=== PATIENT | male | born 1990 | race Asian ===

== ENCOUNTER 2019-02-05 23:43 | Inpatient (IN) | payer SELFPAY ==
[~2019-02-05] VITALS: Ht 170.2 cm; Wt 85.7 kg
[2019-02-05 23:54] VITALS: Ht 170.2 cm; Wt 85.7 kg
--- NOTE | 2019-02-06 00:15 | NUR ---
PATIENT SEEN WITH COMPLAINT OF SORENESS OF BOTH THIGH. DENIES INJURY , BUT REPORT EXERCISING. PATIENT IS WAIITNG FOR MD EVALUATION.
[2019-02-06 00:45] LABS: CALCIUM 8.7 mg/dL (8.5-10.1); CARBON DIOXIDE 30.2 mmol/L (21-32); CHLORIDE SERUM 105 mmol/L (98-107); GFR1 > 60 mL/min; GLUCOSE SERUM 96 mg/dL (74-106); POTASSIUM SERUM 4.3 mmol/L (3.5-5.1); SODIUM SERUM 143 mmol/L (136-145)
--- NOTE | 2019-02-06 00:48 | NUR ---
URINE SENT TO LAB; TEA-COLORED URINE NOTED.
[2019-02-06 00:57] LABS: UA SPECIFIC GRAVITY 1.025 (1.005-1.035); microscopic required? YES; urine erythrocyte 3+ (NEGATIVE)
--- NOTE | 2019-02-06 01:31 | NUR ---
SALINE LOCK INSERTED AND FLUID BOLUS WAS GIVEN.
--- NOTE | 2019-02-06 03:19 | NUR ---
pORTABLE CHEST XRAY WAS DONE. REPORT WAS GIVEN TO HALLE.
[2019-02-06 03:20] LABS: BASOPHIL % 0.2 % (0-2); PLATELET COUNT 229 x10^3mcL (130-400); RED CELL DISTRIBUTION WIDTH 12.5 % (11.5-14.5)
[2019-02-06 03:21] LABS: MAGNESIUM 2.3 mg/dL (1.8-2.4)
[2019-02-06 03:22] LABS: AMPHETAMINE QUAL UR NONE DETECTED (See below)
[2019-02-06 03:30] LABS: T3 TOTAL 0.93 ng/mL
--- NOTE | 2019-02-06 03:31 | NUR ---
PATIENT TRANSPORTED TO ROOM 237.REPORT WAS GIVEN TO HALLE.
[2019-02-06 03:34] LABS: FREE T4 0.94 ng/dL (0.76-1.46); FREE THYROXINE INDEX 2.6 ug/dL (1.4-4.5); T4(THYROXINE) 7.4 ug/dL (4.7-13.3)
[2019-02-06 04:09] LABS: CHOLESTEROL/HDL RATIO 2.7
[2019-02-06 04:10] VITALS: BP 161/106
--- NOTE | 2019-02-06 04:27 | NUR ---
RECEIVED PT FROM ED VIA WHEELCHAIR. A/O X4. DENIES HEADACHE/DIZZINESS. ADMITTED WITH COMPLAINTS OF BILAT. LEGS PAIN,STARTED AFTER VIGOROUS WORKOUT PT STATES PAIN TOLERABLE WHEN AT REST. BUT SLIGHT PAIN ON AMBULATION AT THIS TIME. RESP. EVEN AND UNLABORED, LUNG SOUNDS CLEAR BILAT. ON ROOM AIR, NO ACUTE DISTRESS NOTED. AFEBRILE AND VITAL SIGNS STABLE. DENIES CP OR PRESSURE. SKIN WARM AND DRY TO TOUCH, INTACT AND NO EDEMA NOTED. STARTED ON IVF, NS AT 200ML/HR, INFUSING VIA LAC, SITE CLEAR. ORIENTED TO ROOM AND SURROUNDINGS. BED IN LOW POSITION. CALL LIGHT WITHIN REACH.
[2019-02-06 05:33] VITALS: BP 145/85
--- NOTE | 2019-02-06 06:01 | NUR ---
RESTING QUIETLY IN BED, WITH EYES CLOSED, APPEARS ASLEEP, EASILY AROUSABLE.RESP. EVEN AND UNLABORED. NO ACUTE DISTRESS NOTED. AFEBRILE AND VITAL SIGNS STABLE. NO COMPLAINTS NOTED AT THIS TIME. IVF INTACT AND INFUSING WELL, SITE CLEAR. KEPT COMFORTABLE. CALL LIGHT WITHIN REACH. WILL CONTINUE TO MONITOR.
--- NOTE | 2019-02-06 07:30 | NUR ---
RECEIVED PT FROM WARM IN. PT AWAKE, ALERT A/OX4. PT ON ROOM AIR WITH NO RESP DISTRESS NOTED. IV ACCESS LAC, CDI INFUSING NS AT 200ML/HR. PERIPHERAL PULSES PALPABLE, NO EDEMA NOTED. ACTIVE BS NOTED. PT REPORTS URINE IS LIGHT BROWN AND GETTING TELEPHONE CLAIMS REPRESENTATIVE. PREVIOUSLY WAS DARK BROWN PER PATINET. PT REPORTS PAIN 6/10 WHEN MOVING LEGS. SORENESS FROM TAKING A SPIN CLASS PER PATIENT. PT ABLE TO AMBULATE, INSTRUCTED TO USE CALL LIGHT FOR ASSISTANCE. BED LOW AND LOCKED. CALL LIGHT WITHIN REACH.
--- NOTE | 2019-02-06 08:34 | NUR ---
DUE MEDS ADMINISTERED. PT TOLERATED WELL. PT COMPLAINING OF PAIN UPON MOVEMENT TO BILATERAL LOWER EXTREMITIES AND WHEN AMBULATING. PT REPORTS TOLERABLE AT THIS TIME AND MUCH BETTER TODAY THAN BEFORE. PT REPORTS URINE IS GETTING MORTGAGE LOAN COORDINATOR.
--- NOTE | 2019-02-06 11:57 | NUR ---
PT ASLEEP AT THIS TIME WITH NO ACUTE DISTRESS OR DISCOMFORT NOTED.
--- NOTE | 2019-02-06 14:00 | NUR ---
ALL NEEDS MET AT THIS TIME.
[2019-02-06 17:01] VITALS: BP 148/105
--- NOTE | 2019-02-06 17:44 | NUR ---
PT AWAKE, ALERT. PT REPORTS PAIN IS "MUCH BETTER" TOLERABLE AT THIS TIME. PT UP EATING DINNER AT THIS TIME. SAFETY MAINTAINED.
--- NOTE | 2019-02-06 18:16 | NUR ---
PT STABLE AT THIS TIME. ALL NEEDS MET THROUGHOUT SHIFT. WILL CONTINUE TO MONITOR AND ENDORSE CARE TO PONY TRIMMER.
--- NOTE | 2019-02-06 20:00 | NUR ---
SEATED UP IN BED AAO X4 VERBAL DENIES PAIN OR DISCOMFORTS, NOT IN ANY DISTRESS LUNGS CTA, V/S STABLE IVF NS INFUSING @ 200CC/HR IV ACCESS @ LAC PATENT NON INFIL, ABD SOFT NON TENDER BS ACTIVE, TOLERATED CURRENT DIET, NO NAUSEA OR VOMITING, EQUAL HAND CONSTRUCTION JOB COST ESTIMATOR DENIES HEADACHE OR DIZZINESS, SHIFT ASSESSMENT DONE, PT REQUESTING TO TALK TO BUSINESS OFFICE REGARDING BILLING, ADMITTING PERSONNEL TALKED TO HIM BY PHONE, WILL CONT TO MONITOR.
[2019-02-06 22:51] VITALS: BP 143/98
--- NOTE | 2019-02-07 01:22 | NUR ---
CONTINUED IVF NS @ 150CC/HR, INFUSING ORDERED, CONT TO MONITOR.
--- NOTE | 2019-02-07 03:00 | NUR ---
PT AWAKE TALKING SOMEBODY IN THE PHONE, DENIES PAIN, NO DISTRESS, CONT TO MONITOR.
[2019-02-07 04:50] VITALS: BP 134/91
--- NOTE | 2019-02-07 06:38 | NUR ---
PT UP AND ABOUT, AMBULATING WITH NO DIFFICULTY, DENIES PAIN, NO DISTRESS, IVF INFUSING NS @ 150CC/HR IV ACCESS LAC PATENT NON INFIL, PT VERBALIZED WORRIES ABOUT HIS BILL, WANTED TO GO HOME BEFORE LUNCH WILL ENDORSE TO AM SHIFT, BLD WORKS DRAWN, CONTINUE TO MONITOR.
[2019-02-07 07:00] LABS: BASOPHIL % 0.6 % (0-2); PLATELET COUNT 261 x10^3mcL (130-400); RED CELL DISTRIBUTION WIDTH 12.9 % (11.5-14.5)
[2019-02-07 07:08] LABS: CALCIUM 8.9 mg/dL (8.5-10.1); CARBON DIOXIDE 29.4 mmol/L (21-32); CHLORIDE SERUM 105 mmol/L (98-107); CREATININE SERUM 0.9 mg/dL (0.7-1.3); GFR1 > 60 mL/min; GLUCOSE SERUM 97 mg/dL (74-106); PHOSPHOROUS 4.3 mg/dL (2.5-4.9); POTASSIUM SERUM 4.1 mmol/L (3.5-5.1); SODIUM SERUM 142 mmol/L (136-145)
--- NOTE | 2019-02-07 07:34 | NUR ---
ASSUMED CARE OF PATIENT. NO COMPLAINTS OF PAIN OR DISCOMFORT. NO APPARENT DISTRESS NOTED. IV TO LAC PATENT AND INFUSING NS AT 150ML/HR. WILL CONTINUE TO MONITOR.
[2019-02-07 08:53] VITALS: BP 148/96
--- NOTE | 2019-02-07 08:59 | NUR ---
PATIENT REFUSING PROTONIX THIS AM. STATES HE FEELS BETTER AND DOES NOT NEED IT. OTHERWISE PATIENT HAS NO COMPLAINTS OF PAIN OR DISCOMFORT. NO APPARENT DISTRESS. JUST WANTS TO REST FOR NOW.
--- NOTE | 2019-02-07 13:24 | NUR ---
PATIENT QUESTIONING DISCHARGE. UPDATED PATIENT ON PLAN. REPEAT CK TONIGHT AND WILL DISCHARGE IF TRENDING DOWNWARDS. CONTINUES TO HAVE CONCERNS ABOUT BILL FOR STAYING ANOTHER DAY INPATIENT.
[2019-02-07 17:11] VITALS: BP 147/95
[2019-02-07 17:53] VITALS: BP 147/95
--- NOTE | 2019-02-07 18:49 | NUR ---
DISCHARGE EDUCATION AND INSTRUCTION PROVIDED. IV REMOVED WITH CATHTER INTACT. NO COMPLAINTS OF PAIN OR DISCOMFORT. PATIENT REQUIRING PANTS, SEARCHING DONATION BIN.
--- NOTE | 2019-02-07 19:00 | NUR ---
CLOTHING PROVIDED. ID BAND REMOVED.
== END 2019-02-07 19:14 | disposition home or self-care (01) | DRG 558 ==
LOC: ED 23:43 → MU 02-06 02:43
PROVIDERS: Emergency Medicine; ADMIT Internal Medicine
DX: M62.82 Rhabdomyolysis (principal); D72.829 Elevated white blood cell count, unspecified; Z83.3 Family history of diabetes mellitus
CPT/HCPCS: 84439; C9113; G0378; J7030; Q0092